=== PATIENT | male | born 1990 | race Caucasian/White ===

== ENCOUNTER 2018-11-17 20:01 | Emergency (ER) | payer BC ==
[2018-11-17 20:24] VITALS: BP 145/75
[2018-11-17] MEDS ORDERED: Levofloxacin TAB* 250 MG PO ONE (21:52)
--- NOTE | 2018-11-17 21:57 | ED ---
Respiratory - HPI Summary HPI Summary: patient with hx, of cough for the last several days, low grade fever, no pleuritic pain - History of Current Complaint Chief Complaint: UCRespiratory Stated Complaint: COUGH, CHILLS Time Seen by Provider: 11/17/18 21:20 Onset/Duration: Gradual Onset, Lasting Days Initial Severity: Moderate Current Severity: Moderate Pain Intensity: 5 Character: Cough (Productive) Sputum Amount: None Aggravating Factor(s): Nothing Alleviating Factor(s): Nothing - Allergy/Home Medications Allergies/Adverse Reactions: Allergies Allergy/AdvReac Type Severity Reaction Status Date / Time No Known Allergies Allergy Verified 11/17/18 20:17 PMH/Surg Hx/FS Hx/Imm Hx Previously Healthy: Yes Infectious Disease History: No Infectious Disease History: Denies: Traveled Outside the [place] in Last 30 Days - Social History Alcohol Use: None Substance Use Type: Reports: None Smoking Status (MU): Never Smoked Tobacco Review of Systems Positive: Fever, Chills Eyes: Negative ENT: Negative Cardiovascular: Negative Positive: Cough Gastrointestinal: Negative Musculoskeletal: Negative Skin: Negative Neurological: Negative All Other Systems Reviewed And Are Negative: Yes Physical Exam Triage Information Reviewed: Yes Vital Signs On Initial Exam: Initial Vitals Temp Pulse Resp BP Pulse Ox 36.8 C 111 24 145/75 96 11/17/18 20:18 11/17/18 20:18 11/17/18 20:18 11/17/18 20:18 11/17/18 20:18 Vital Signs Reviewed: Yes Appearance: Positive: Ill-Appearing Skin: Positive: Warm Head/Face: Positive: Normal Head/Face Inspection Eyes: Positive: Normal ENT: Positive: Normal ENT inspection Dental: Positive: Percussion Tenderness @ Neck: Positive: Supple Respiratory/Lung Sounds: Positive: Rales Cardiovascular: Positive: Normal Abdomen Description: Positive: Nontender Diagnostics - Vital Signs Vital Signs Temp Pulse Resp BP Pulse Ox 11/17/18 20:18 36.8 C 111 24 145/75 96 - Laboratory Lab Results: Lab Results 11/17/18 Range/Units 20:46 Influenza A (Rapid) Negative (Negative) Influenza B (Rapid) Negative (Negative) Lab Statement: Any lab studies that have been ordered have been reviewed, and results considered in the medical decision making process. Disposition - Diagnoses Provider Diagnoses: Right middle lobe pneumonia Discharge - Sign-Out/Discharge Documenting (check all that apply): Patient Departure All imaging exams completed and their final reports reviewed: Yes - Discharge Plan Condition: Fair Disposition: HOME Prescriptions: Levofloxacin TAB* [Levaquin TAB*] 750 mg PO DAILY 6 Days #6 tab Patient Education Materials: Pneumonitis (ED) Referrals: No Primary Care Phys,NOPCP [Primary Care Provider] - - Billing Disposition and Condition Condition: FAIR Disposition: Home
== END 2018-11-17 22:01 | disposition home or self-care (01) ==
LOC: UCCORT 20:01
DX: J18.1 Lobar pneumonia, unspecified organism (principal)
CPT/HCPCS: 71046; 99202; A9270-GY; G0463